=== PATIENT | female | born 1960 | race Caucasian/White ===

== ENCOUNTER 2016-06-21 07:27 | Day surgery (SDC) | payer OTHER ==
[2016-06-20 13:16] VITALS: BMI 34.2
[~2016-06-21 07:27] MED LIST: LACTATED RINGERS 1,000 ML IV SCH
[2016-06-21 07:51] VITALS: RESP 16; TEMP 97.4
[2016-06-21] MEDS ORDERED: MIDAZOLAM 2 MG/2 ML VIAL ONE (08:42)
[2016-06-21] MEDS ORDERED: fentaNYL (PF) 50 MCG/ML 2 ML AMP ONE (08:42)
[2016-06-21] MEDS ORDERED: PROPOFOL 10 MG/ML 50 ML VIAL IV ONE (08:42)
[2016-06-21] MEDS ORDERED: LACTATED RINGERS 1,000 ML IV ONE (08:58)
--- NOTE | 2016-06-21 09:00 | P.PCN ---
Date of Procedure: 06/21/16 Procedure(s) Performed: BRIEF HISTORY: Patient is a 55-year-old pleasant white female scheduled for an elective colonoscopy as a part of screening for colorectal neoplasia. She has family history of colon cancer diagnosed in her grandmother at age 70. PROCEDURE PERFORMED: Colonoscopy. PREOPERATIVE DIAGNOSIS: Screening for colon cancer. IV sedation per Anesthesia. PROCEDURE: After informed consent was obtained, the patient, was brought into the endoscopy unit. IV sedation was administered by Anesthesia under continuous monitoring. Digital rectal examination was normal. Initially the Olympus CF- 160 flexible video colonoscope was then inserted in the rectum, gradually advanced into the cecum without any difficulty. Careful examination was performed as the scope was gradually being withdrawn. Ileocecal valve and the appendiceal orifice were visualized and appeared normal. Prep was excellent. Mucosa of the cecum, ascending colon, transverse colon, descending colon, sigmoid colon, and rectum appeared normal. Retroflexion was performed in the rectum and no lesions were seen. The patient tolerated the procedure well. IMPRESSION: Normal-appearing colon from rectum to cecum with no evidence of colorectal neoplasia. RECOMMENDATIONS: Findings of this examination were discussed with the patient as well as her family. She was advised to have a repeat scanning colonoscopy in 10 years.
[2016-06-21 09:31] VITALS: BP 124/80; PULSE 64
== END 2016-06-21 09:40 | disposition home or self-care (01) ==
LOC: ORWHC2ENDO 07:27
PROVIDERS: ATTEND Internal Medicine Gastroenterology
DX: Z12.11 Encounter for screening for malignant neoplasm of colon (principal); Z80.0 Family history of malignant neoplasm of digestive organs; E78.5 Hyperlipidemia, unspecified; Z79.899 Other long term (current) drug therapy
CPT/HCPCS: J2250; J3010; J2704; G0105; 45378

== ENCOUNTER → 2018-08-21 | Outpatient (CLI) | payer OTHER ==
--- NOTE | 2018-08-24 07:44 | USB ---
Reason for exam: history of breast cancer, mastectomy. History: Patient has breast cancer gene and has history of breast cancer at age 34. Family history of breast cancer in paternal grandmother and breast cancer in 9 paternal cousins. Mastectomy of both breasts, 2007. Lumpectomy of the right breast, 1995. Chemotherapy, 1995. Radiation therapy of the right breast, 1995. Silicone gel implants in both breasts. TRAM Reconstruction of the right breast. Physical Findings: Nurse Summary: Patient complains of right lump above scar x 5 years, states increase in size (nurse mj). US Breast BILAT Left complete breast ultrasound includes all four quadrants, the retroareolar region and axilla. Finding demonstrates fluid collection marginating the implant could represent and intracapsular rupture, MRI can further evaluation and upper inner quadrant irregular appearing tissue/echoes located within the implant, probable debris or appearance as a sequela of intracapsular rupture. Right complete breast ultrasound includes all four quadrants, the retroareolar region and axilla. Finding demonstrates 12 o'clock palpable showed no solid or cystic lesion. History or bilateral silicone implants and TRAM flap on the right. These results were verbally communicated with the patient and result sheet given to the patient on 08/21/18. ASSESSMENT: Incomplete: need additional imaging evaluation, BI-RAD 0 RECOMMENDATION: Breast MRI of both breasts. (consider MRI) Manage on a clinical basis with regard to any suspicious palpable abnormality. MRI can assess for any potential intracapsular rupture on the left.
== END | disposition home or self-care (01) ==
LOC: RADUSWWP 09:01
PROVIDERS: ATTEND Plastic Surgery
DX: Z08 Encounter for follow-up examination after completed treatment for malignant neoplasm (principal); Z85.3 Personal history of malignant neoplasm of breast

== ENCOUNTER → 2018-09-21 | Outpatient (CLI) | payer OTHER ==
--- NOTE | 2018-09-21 13:17 | BMR ---
EXAMINATION TYPE: MR breast BILAT wo/w con DATE OF EXAM: 09/21/2018 COMPARISON: Prior bilateral breast MRI June 13, 2014. Recent complete bilateral breast ultrasound 2018 BI-RADS 0. HISTORY: Rule out implant rupture/ History of breast cancer 1996 with double mastectomy and tram flap reconstruction on the right. History of silicone implants. CONTRAST: Multiplanar, multisequence images of the breasts were acquired utilizing 8.5 mL intravenous Gadavist gadolinium contrast. TECHNIQUE: A series of fat and water weighted images in the long and short axis views of both breasts are obtained in conjunction with dynamic contrast MRI with subtraction technique. Three-dimensional and additional postprocessing imaging is created on independent workstation and reviewed during offi cial interpretation of this study. FINDINGS: Exam noted suboptimal secondary to patient motion. Patient had difficulty holding still. Th ere is redemonstration of bilateral silicone type implants with left-sided implant slightly larger in size versus right-sided implant. Implant size fairly stable from prior. On current study there is ne w infolding throughout the left breast implant consistent with intracapsular rupture. No suspicious r ight-sided infolding is present. No extraluminal silicone is seen to suggest extracapsular rupture bi laterally. No suspicious axillary adenopathy. No pathologic enhancement. Chest wall is intact. IMPRESSION: Confirmation of intracapsular rupture left breast as suspected on recent ultrasound.
== END | disposition home or self-care (01) ==
LOC: RADMRIMAIN 11:20
PROVIDERS: ATTEND Plastic Surgery
DX: Z08 Encounter for follow-up examination after completed treatment for malignant neoplasm (principal); Z85.3 Personal history of malignant neoplasm of breast
CPT/HCPCS: 77049; C8937; A9585

== ENCOUNTER → 2020-11-17 | Outpatient (CLI) | payer BC ==
--- NOTE | 2020-11-17 13:46 | CT ---
EXAMINATION TYPE: CT abdomen pelvis w con DATE OF EXAM: 11/17/2020 HISTORY: Left sided abdominal pain x 1 month after eating. History of breast ca. CT DLP: 859mGycm Automated Exposure Control for Dose Reduction was Utilized. CONTRAST: CT scan of the abdomen and pelvis is performed with oral and with IV Contrast, patient injected with 100 mL of Isovue M300. COMPARISON: None. FINDINGS: LUNG BASES: Mild to moderate bibasilar linear scarring anteriorly is present. LIVER/GB: No significant abnormality is appreciated. PANCREAS: No significant abnormality is seen. SPLEEN: No significant abnormality is seen. ADRENALS: No significant abnormality is seen. KIDNEYS: Central simple parapelvic cysts are present. BOWEL: Oral contrast does not reach level of the terminal ileum making evaluation distal bowel slight ly suboptimal. No suspicious small or large bowel dilatation. Small size hiatal hernia. Normal-appear ing appendix base of cecum in the right lower quadrant posteriorly. Slightly redundant sigmoid colon. UTERUS/ADNEXA: Uterus is surgically absent or markedly atrophic. Occasional scattered tiny pelvic phl ebolith. LYMPH NODES: No greater than 1cm abdominal or pelvic lymph nodes are appreciated. OSSEOUS STRUCTURES: Transitional type L6 vertebra lumbosacral junction is sacralized on the right. OTHER: No significant additional abnormality is seen. IMPRESSION: No significant acute finding is seen to account for patient's clinical symptoms.
== END | disposition home or self-care (01) ==
LOC: RADCTMAIN 11:16
PROVIDERS: ATTEND Internal Medicine Hematology & Oncology
DX: R10.9 Unspecified abdominal pain (principal); Z85.3 Personal history of malignant neoplasm of breast
CPT/HCPCS: 74177; Q9967 ×2

== ENCOUNTER → 2022-05-01 | Outpatient (CLI) | payer BC ==
--- NOTE | 2022-05-01 11:35 | USB ---
Reason for Exam: Clinical finding. Patient History: Breast cancer, age 34. 2007, Bilateral Mastectomy. 1995, Lumpectomy on the Right side. TRAM Reconstruction, right. 1995, Chemotherapy. 1995, Radiation Therapy on the right side. Bilateral Implants. Paternal grandmother had breast cancer. Paternal cousin had breast cancer. Paternal cousin had breast cancer. Paternal cousin had breast cancer. Paternal cousin had breast cancer. Paternal cousin had breast cancer. Paternal cousin had breast cancer. Paternal cousin had breast cancer. Paternal cousin had breast cancer. Paternal cousin had breast cancer. Findings: The whole breast of the right breast, the axilla of the right breast and the retroareolar of the right breast were scanned. A complete US of all four quadrants of the breast common axilla, and retro-areolar region were reviewed. Underlying breast implant is demonstrated. * At the 2:00 site of prior redness, there is no discrete abnormality. * Along the 12:00, chronic palpable site, we again note some focal fatty prominence overlying the breast implant. This findings unchanged from the 2019 exam. No solid or cystic lesion. * Along the site of pain, 9:00 to 11:00, no discrete abnormality is seen. * No axillary lymphadenopathy. No other solid or cystic lesion. Overall Assessment: Benign, BI-RAD 2 Management: Diagnostic Breast Ultrasound of both breasts. As clinically indicated. Ongoing clinical follow-up and management. If any suspicious palpable area develops, the patient can be rescanned. Results were given to the patient verbally at the time of exam. Electronically signed and approved by: Manuel Seth M.D. Radiologist
== END | disposition home or self-care (01) ==
LOC: RADUSWWP 10:52
PROVIDERS: ATTEND Family Medicine
DX: N63.10 Unspecified lump in the right breast, unspecified quadrant (principal); Z80.3 Family history of malignant neoplasm of breast

== ENCOUNTER 2024-03-12 09:15 | Day surgery (SDC) | payer BC ==
[~2024-03-12 09:15] MED LIST changes: +HYDROmorphone 0.5 MG/0.5 ML SYRINGE IVP PRN; -LACTATED RINGERS 1,000 ML IV SCH; +Pre Op ABX Message 1 EACH MISC MISCELLANE ONE
[2024-03-12] MEDS: IV FLUID CONTINUATION 1,000 ML IV ONE (09:46)
[2024-03-12] MEDS: ACETAMINOPHEN TAB 500 MG TAB PO PRN (10:05)
[2024-03-12] MEDS: ONDANSETRON 4 MG/2 ML VIAL IVP ONE (10:15)
[2024-03-12] MEDS: LACTATED RINGERS 1,000 ML IV SCH (10:15)
[2024-03-12] MEDS: DEXAMETHASONE SOD PHOSPHATE 4 MG/ML 1 ML VIAL IV ONE (10:15)
[2024-03-12] MEDS: HEPARIN SODIUM,PORCINE 5,000 UNIT/ML 1 ML VIAL SQ PRN (10:15)
[2024-03-12 10:16] LABS: Glucose,Whole Blood 83 mg/dL (70-110)
--- NOTE | 2024-03-12 11:05 | P.GSHP ---
History of Present Illness H&P Date: 03/12/24 Chief Complaint: Metastatic cervical cancer 63-year-old female here for Port-A-Cath placement. Patient with history of breast cancer in the past. Recently diagnosed with cervical cancer at the vaginal cuff that is metastatic. Starting chemotherapy next week. Patient had a port previously on the right-hand side that had eroded through the skin many years ago. History of bilateral breast implants and right sided chest wall radiation. Past Medical History Past Medical History: Asthma, Cancer, GERD/Reflux, Renal Disease Additional Past Medical History / Comment(s): exercised induced asthma, hx. breast cancer 1995-chemo & radiation, BRACA1 positive returned breast cancer , cervical cancer lymph node involvement, gets "chemo rash". stage 1 kidney disease History of Any Multi-Drug Resistant Organisms: None Reported Past Surgical History: Breast Surgery, Hysterectomy Additional Past Surgical History / Comment(s): double mastectomy /reconstruction Past Anesthesia/Blood Transfusion Reactions: Previous Problems w/ Anesthesia Additional Past Anesthesia/Blood Transfusion Reaction / Comment(s): one episode of difficulty waking up, see nurses notes Smoking Status: Former smoker - Past Family History Mother Family Medical History: No Reported History Medications and Allergies Home Medications Medication Instructions Recorded Confirmed Type Albuterol Sulfate [Proair Hfa] 1 - 2 puff INHALATION Q6HR PRN 06/20/16 03/12/24 History Cetirizine HCl [Zyrtec] 10 mg PO DAILY 06/20/16 03/12/24 History Cholecalciferol [Vitamin D3] 1,000 unit PO DAILY 06/20/16 03/12/24 History Sertraline [Zoloft] 100 mg PO DAILY 06/20/16 03/12/24 History ALPRAZolam [Xanax] 0.25 mg PO HS PRN 03/10/24 03/12/24 History Acetaminophen Tab [Tylenol Tab] 500 mg PO Q4H PRN 03/10/24 03/12/24 History Famotidine [Pepcid AC] 10 mg PO DAILY PRN 03/10/24 03/12/24 History Fluconazole 200 mg PO DAILY 03/10/24 03/12/24 History Ondansetron Odt [Zofran Odt] 4 mg PO Q8HR PRN 03/10/24 03/12/24 History polyethylene glycoL 3350 [Miralax] 17 gm PO DAILY PRN 03/10/24 03/12/24 History predniSONE 20 mg PO DAILY 03/10/24 03/12/24 History Allergies Allergy/AdvReac Type Severity Reaction Status Date / Time No Known Allergies Allergy Verified 03/12/24 09:56 Surgical - Exam Physical exam: General: Well-developed, well-nourished HEENT: Normocephalic, sclerae nonicteric Abdomen: Nontender, nondistended Extremities: No edema Neuro: Alert and oriented Chest: Previous right sided Port-A-Cath fairly inferior in location Assessment and Plan (1) Cervical cancer Narrative/Plan: Will proceed with Port-A-Cath placement at this time. Discussed options of location. Will place the right sided Port-A-Cath superior to the previous port pocket. Risks of bleeding, infection, DVT, pneumothorax, catheter malfunction, anesthesia related complications were discussed. The patient understands and wishes to proceed. Current Visit: Yes Status: Acute Code(s): C53.9 - MALIGNANT NEOPLASM OF CERVIX UTERI, UNSPECIFIED SNOMED Code(s): 962328982
[2024-03-12] MEDS ORDERED: PROPOFOL 10 MG/ML 20 ML VIAL IV ONE (11:20)
[2024-03-12] MEDS ORDERED: SUCCINYLCHOLINE CHLORIDE 200 MG/10 ML VIAL IV ONE (11:20)
[2024-03-12] MEDS ORDERED: MIDAZOLAM 2 MG/2 ML VIAL ONE (11:20)
[2024-03-12] MEDS ORDERED: LIDOCAINE 1% INJ 10MG/ML (20 ML MDV) ONE (11:20)
[2024-03-12] MEDS ORDERED: fentaNYL (PF) 50 MCG/ML 2 ML AMP ONE (11:20)
[2024-03-12] MEDS: BUPIVACAINE (PF) 0.25% 30 ML VIAL SQ ONE ×2 (11:55)
[2024-03-12] MEDS: HEPARIN SODIUM,PORCINE 100 UNIT/ML 5 ML VIAL IV ONE (12:06)
[2024-03-12 12:41] VITALS: TEMP 96.8
--- NOTE | 2024-03-12 12:47 | FL ---
Fluoroscopy INDICATION: Pain FINDINGS: Fluoroscopy time: 5 seconds. Total dose area product (DAP) in uGy*m?, mGy*cm? (or similar): 0.73133 Images obtained: 2. Images document catheter placement. IMPRESSION: 1. Documentation of fluoroscopy. [facility], , 03/12/2024 12:44 PM
[2024-03-12] MEDS ORDERED: NALOXONE 0.4 MG/ML 1 ML VIAL IV PRN (12:48)
[2024-03-12] MEDS ORDERED: traMADol 50 MG TAB PO PRN (12:48)
--- NOTE | 2024-03-12 12:52 | P.OP ---
Date of Procedure: 03/12/24 Procedure(s) Performed: PREOPERATIVE DIAGNOSIS: Cervical cancer POSTOPERATIVE DIAGNOSIS: Same PROCEDURE: Port-A-Cath placement with fluoroscopic and ultrasound guidance SURGEON: Venu EBL: 5 cc ANESTHESIA: General COMPLICATIONS: None OPERATIVE PROCEDURE: Patient was brought and placed on the operative table in the supine position. The patient was placed under general anesthesia at that time. The chest and neck were prepped and draped in usual sterile fashion. The ultrasound probe was used to identify the location of the right internal jugular vein. The skin was localized with lidocaine. The Seldinger needle was advanced into the IJ under ultrasound guidance. The wire was advanced through the needle under fluoroscopic guidance into the superior vena cava. A port pocket was created in the right infraclavicular location. The catheter was tunneled from the wire entrance site to the port pocket. The port was then connected to the catheter. The dilator introducer was threaded over the guidewire. The guidewire and dilator were then removed. The catheter was advanced through the introducer and introducer was then removed. The tip was seen to be in the right atrial junction via fluoroscopy. A picture of the radiograph showing the tip of the catheter was taken. Port was flushed with both saline and a Hep-Lock solution. There was good flow both in and out of the port. The port was sutured in underlying tissues using 3-0 silk sutures. The subcutaneous tissues were reapproximated using 3-0 Vicryl sutures and the skin at both locations using 4-0 Monocryl sutures. Skin glue and sterile dressings then applied. DISPOSITION: Stable to recovery room
--- NOTE | 2024-03-12 12:57 | XR ---
EXAMINATION TYPE: XR chest 1V portable DATE OF EXAM: 03/12/2024 12:47 PM COMPARISON: None. CLINICAL INDICATION: Female, 63 years old with history of venous access device, TECHNIQUE: XR chest 1V portable view(s) obtained. FINDINGS: The heart size is normal. The pulmonary vasculature is normal. Mild linear opacities are at the lung bases. There is placement of a port on the right with the tip in the superior vena cava region. No pneumotho rax is evident. IMPRESSION: 1. Scattered streak atelectasis. 2. Port placement on the right with the tip in the superior vena cava region. No pneumothorax evident . [facility], , 03/12/2024 12:55 PM
[2024-03-12 14:19] VITALS: BP 124/2; PULSE 70; RESP 20
== END 2024-03-12 14:17 | disposition home or self-care (01) ==
LOC: OR 09:15
PROVIDERS: ATTEND Surgery
DX: C79.82 Secondary malignant neoplasm of genital organs (principal); J45.909 Unspecified asthma, uncomplicated; Z45.2 Encounter for adjustment and management of vascular access device; Z79.52 Long term (current) use of systemic steroids; Z85.3 Personal history of malignant neoplasm of breast; Z90.710 Acquired absence of both cervix and uterus
CPT/HCPCS: 77001; 71045; 36561; C1788; J2250; J0330; J1644; J1642; J1100; J2405; J2003; J3010; J2704; J0665

== ENCOUNTER → 2024-07-06 | Outpatient (CLI) | payer BC ==
--- NOTE | 2024-07-06 13:47 | US ---
EXAMINATION TYPE: US venous doppler duplex LE RT DATE OF EXAM: 07/06/2024 1:31 PM COMPARISON: NONE CLINICAL INDICATION: Female, 63 years old with history of R22.41 LOCALIZED SWELLING, MASS AND LUMP, R IGHT LO; Right leg edema and pain, no thinners or Hx DVT, on chemo, Pain TECHNIQUE: The lower extremity deep venous system is examined utilizing real time linear array sonog blossom with graded compression, color doppler sonography, and spectral doppler. SIDE PERFORMED: Right FINDINGS: VESSELS IMAGED: Common Femoral Vein Deep Femoral Vein Greater Saphenous Vein * Femoral Vein Popliteal Vein Small Saphenous Vein * Proximal Calf Veins (* superficial vessels) Right Leg: Negative for DVT, Color Doppler imaging shows patency of the vessels. Spectral waveforms are within normal limits. IMPRESSION: No evidence for DVT within the right lower extremity imaged from the groin to the upper calf. [facility], , 07/06/2024 1:45 PM
== END | disposition home or self-care (01) ==
LOC: RADUSWWP 12:46
PROVIDERS: ATTEND Internal Medicine Hematology & Oncology
DX: R60.0 Localized edema (principal)